=== PATIENT | female | born 1995 | race Two or more races ===

== ENCOUNTER 2022-12-26 13:17 | Outpatient (CLI) | payer OTHER | END 2022-12-26 15:20 | disposition home or self-care (01) | LOC: PRENATAL 13:17 | PROVIDERS: ATTEND Obstetrics & Gynecology Maternal & Fetal Medicine | DX: O36.80X0 Pregnancy with inconclusive fetal viability, not applicable or unspecified (principal); O34.30 Maternal care for cervical incompetence, unspecified trimester; O99.210 Obesity complicating pregnancy, unspecified trimester; Z3A.12 12 weeks gestation of pregnancy ==

== ENCOUNTER 2023-01-08 06:57 | Day surgery (SDC) | payer OTHER | END 2023-01-08 14:50 | disposition home or self-care (01) | LOC: CIR.AMB 06:57 | PROVIDERS: ATTEND Obstetrics & Gynecology Maternal & Fetal Medicine | DX: O34.32 Maternal care for cervical incompetence, second trimester (principal); Z3A.14 14 weeks gestation of pregnancy; Z20.822 Contact with and (suspected) exposure to COVID-19 ==

== ENCOUNTER 2023-02-16 13:02 | Outpatient (CLI) | payer OTHER | END 2023-02-16 15:00 | disposition home or self-care (01) | LOC: PRENATAL 13:02 | PROVIDERS: ATTEND Obstetrics & Gynecology Maternal & Fetal Medicine | DX: O35.9XX0 Maternal care for (suspected) fetal abnormality and damage, unspecified, not applicable or unspecified (principal); O35.3XX0 Maternal care for (suspected) damage to fetus from viral disease in mother, not applicable or unspecified; Z14.8 Genetic carrier of other disease; Z3A.19 19 weeks gestation of pregnancy ==

== ENCOUNTER 2023-03-19 13:11 | Outpatient (CLI) | payer OTHER | END 2023-03-19 16:36 | disposition home or self-care (01) | LOC: PRENATAL 13:11 | PROVIDERS: ATTEND Obstetrics & Gynecology Maternal & Fetal Medicine | DX: O26.849 Uterine size-date discrepancy, unspecified trimester (principal); Z14.8 Genetic carrier of other disease; O99.210 Obesity complicating pregnancy, unspecified trimester; O34.30 Maternal care for cervical incompetence, unspecified trimester; O26.879 Cervical shortening, unspecified trimester; Z3A.24 24 weeks gestation of pregnancy ==